=== PATIENT | female | born 2005 | race Hispanic/Latino ===

== ENCOUNTER 2023-03-22 03:01 | Emergency (ER) | payer SELFPAY ==
[2023-03-22] MEDS ORDERED: Ibuprofen 200 MG TAB ONE (03:45)
[2023-03-22] MEDS ORDERED: Dexameth. Sod Phosp. 10 MG/ML (CHEMO USE ONLY) ONE (03:45)
[2023-03-22 04:50] LABS: #Monocytes 0.8 thou/uL (0.11-0.59); #Neutrophils 9.2 thou/uL (1.40-6.50); %Basophils 0.2 % (0.0-1.0); %Eosinophils 0.3 % (0.0-10.0); %Lymphocytes 12.3 % (28.0-48.0); %Monocytes 7.3 % (0.0-4.0); %Neutrophils 79.6 % (31.0-61.0); Hematocrit 38.9 % (36.0-47.0); Mean Corpuscular HGB CONC 33.4 g/dL (32.0-36.0); Mean Corpuscular Hemoglobin 28.4 pg (25.0-35.0); Mean Corpuscular Volume 84.9 fl (78.0-98.0); Mean Platelet Volume 9.6 fL (7.4-10.4); Platelet Count 257 10x3/uL (130-400); RBC Distribution Width 12.8 % (11.5-14.5); Red Blood Cell (RBC) Count 4.58 mill/uL (4.00-5.20); White Blood Cell (WBC) Count 11.5 10x3/uL (4.8-10.8)
[2023-03-22 06:26] LABS: Troponin I Less than 0.010 ng/mL (< 0.028)
[2023-03-22 06:27] LABS: ALT (SGPT) 16 U/L (8-55); AST (SGOT) 19 U/L (5-30); Albumin 4.3 g/dL (3.5-5.0); Alkaline Phosphatase 81 U/L (40-100); Anion Gap 13 mmol/L (10-20); BUN (Urea Nitrogen) 9 mg/dL (8.4-21.0); Bilirubin, Total 0.2 mg/dL (0.2-1.2); Calc. Creatinine Clearance 0 mL/min (70-130); Calcium 9.2 mg/dL (7.8-10.44); Carbon Dioxide 23 mmol/L (22-29); Chloride 104 mmol/L (98-107); Estimated GFR 128; Globulin 3.2 g/dL (2.4-3.5); Glucose 116 mg/dL (70-105); Potassium 3.8 mmol/L (3.5-5.1); Protein, Total 7.5 g/dL (6.0-8.3); Sodium 136 mmol/L (136-145)
[2023-03-22 08:29] LABS: SARS-CoV-2 NAA Rapid Test Not Detected (NotDetected)
== END 2023-03-22 08:24 | disposition home or self-care (01) ==
LOC: ERS 03:01
DX: J84.10 Pulmonary fibrosis, unspecified (principal); Z20.822 Contact with and (suspected) exposure to COVID-19
CPT/HCPCS: 71045; 80053; 84484; 85025; 87081; 87430; 93005; J1100

== ENCOUNTER 2023-03-25 23:48 | Emergency (ER) | payer SELFPAY | END 2023-03-26 02:00 | disposition left against medical advice (07) | LOC: ERS 23:48 | DX: Z53.21 Procedure and treatment not carried out due to patient leaving prior to being seen by health care provider (principal) ==